=== PATIENT | female | born 1955 | race Caucasian/White ===

== ENCOUNTER 2017-07-12 08:55 | Day surgery (SDC) | payer BC ==
[~2017-07-12 08:55] MED LIST: LIDOCAINE HCL 1% MPF SOL ONE; PROPOFOL 500 MG/50 ML EMU IV ONE
[2017-07-12 11:08] VITALS: BP 138/67; PULSE 56; RESP 20; TEMP 97.3; O2SAT 98
== END 2017-07-12 11:30 | disposition home or self-care (01) ==
LOC: SURG 08:55
PROVIDERS: ATTEND Surgery
DX: Z12.11 Encounter for screening for malignant neoplasm of colon (principal); D12.5 Benign neoplasm of sigmoid colon; K57.30 Diverticulosis of large intestine without perforation or abscess without bleeding
CPT/HCPCS: 45385; 99001; J2001; J2704